=== PATIENT | male | born 1985 | race Caucasian/White ===

== ENCOUNTER 2020-12-01 06:09 | Emergency (ER) | payer SELFPAY ==
--- NOTE | ~2020-12-01 | CT_ITS ---
EXAMINATION: CT facial bones wo con DATE: 12/01/2020 06:45 INDICATION: Facial pain and swelling TECHNIQUE: Computed tomography (CT) of the facial bones and maxillofacial region was performed withou t intravenous contrast. The dose-length product (DLP) was 301.47 mGy-cm. Automated exposure control a nd iterative reconstruction technique were employed. COMPARISON: None. FINDINGS: No acute facial fracture is identified. There appears to be a small laceration in the midli ne of the upper lip. The globes and orbits are normal. The visualized cervical spine is unremarkable. Multiple dental caries are noted. IMPRESSION: 1. Midline soft tissue laceration of the upper lip without underlying osseous abnormality. Reviewed, dictated and finalized at location A. IMPRESSION: 1. Midline soft tissue laceration of the upper lip without underlying osseous a bnormality.
[2020-12-01 06:10] VITALS: BP 140/90; PULSE 97; RESP 20; O2SAT 98
--- NOTE | 2020-12-01 06:22 | ED.WOUNDLAC ---
HPI - Wound/Laceration General Chief Complaint: Wound/Laceration Stated Complaint: Fall Time Seen by Provider: 12/01/20 06:22 Source: patient Mode of arrival: ambulatory Limitations: no limitations History of Present Illness HPI narrative: 35-year-old man comes in today complaining of pain and laceration of his right upper lip after he fell this morning on his wet porch. Patient states that he did not lose consciousness and has had no vomiting. He has been drinking and is inebriated. Onset (ago): minute(s) (15) Place: home Patient tetanus UTD: No Context: accidental Associated symptoms: pain Related Data Home Medications Medication Instructions Recorded Confirmed No Home Medications 12/01/20 12/01/20 Allergies Allergy/AdvReac Type Severity Reaction Status Date / Time No Known Allergies Allergy Verified 12/01/20 06:21 Review of Systems Constitutional: Constitutional: Denies weakness Eyes: Eyes: Denies change in vision and Denies photophobia ENT: Denies dysphagia, Denies epistaxis and Denies nasal congestion Cardiovascular: Cardiovascular: Denies chest pain Respiratory: Respiratory: Denies cough and Denies dyspnea Gastrointestinal: Gastrointestinal: Denies nausea and Denies vomiting Hematologic/Lymphatic: Hematologic/Lymphatic: Denies easy bleeding and Denies easy bruising Allergic/Immunologic: Allergic/Immunologic: Denies lip swelling and Denies throat swelling [facility] Social History Social History (Updated 12/01/20 @ 06:34 by Andres Blas MD) Smoking status: Current every day smoker Alcohol intake: current Substance use type: marijuana Living arrangements: with family Exam Const: General: healthy appearing and alert Orientation/consciousness: patient oriented x3 Limitations: no limitations Other: Mild acute distress. HENMT: Head: normal to inspection Ears: external ears normal and EAC's normal Mouth: Yes moist mucous membranes Throat: posterior oropharynx normal Other: Mild bruising and tenderness with palpation of the right maxilla above the tooth line. No swelling or loose teeth. No evident epistaxis. 2.5 cm partial-thickness laceration from the nare to just above the vermilion border. No evident laceration on the buccal surface. Eyes: Conjunctivae: conjunctivae normal Pupils: Equal, round and reactive pupils present EOM: EOMs intact bilaterally Skin: General skin exam: normal color, no jaundice and no pallor Rashes: no rashes Neuro: General: patient oriented x3, moves all extremities, no focal motor deficits and CN's II-XI intact bilaterally Speech: normal speech Gait exam (Neuro): Normal gait present Extrem: General: normal to inspection and no clubbing, cyanosis or edema Psych: Appearance: grossly normal and well kempt Mental Status: mental status grossly normal Affect: normal affect Attitude: cooperative Thought content: Yes Normal thought content present Course Vital Signs Vital signs: Vital Signs Pulse Rate 97 12/01/20 06:10 Respiratory Rate 20 12/01/20 06:10 Blood Pressure 140/90 12/01/20 06:10 Pulse Oximetry 98 12/01/20 06:10 Pulse Rate 97 12/01/20 06:10 Respiratory Rate 20 12/01/20 06:10 Blood Pressure 140/90 12/01/20 06:10 Pulse Oximetry 98 12/01/20 06:10 Procedures Laceration Laceration 1: Date: 12/01/20 Time: 06:30 Site: lip Side (If applicable): right Size (cm): 2.5 Description: linear Depth: involves muscle layer Local Anesthetic: lidocaine 1% and with epi Amount of anesthesia used (mL): 2 Pre-repair: wound explored and irrigated ====== Skin Level ====== Skin layer closed with: nylon Size (cm): 5-0 Number of sutures: 6 Technique: simple, interrupted ====== Subcutaneous Layer ====== ====== Muscle Layer ====== Muscle layer closed with: chromic gut Size: 5-0 Number of sutures: 2
[2020-12-01] MEDS: TETANUS,DIPHTHERIA,AC PERTUSSIS ADULT 0.5 ML (ADACEL) IM (06:38)
[2020-12-01] MEDS: LIDO 1%/EPINEPHRINE 1:100,000 20 ML VIAL 10 ML INFILTRATE (06:48)
--- NOTE | 2020-12-01 07:01 | PC.NURSE ---
Pt report to MICHAEL Blair. dr caceres in process of doing sutures.
[2020-12-01 07:27] VITALS: BP 115/79; PULSE 89; RESP 16; TEMP 36.4; O2SAT 97
== END 2020-12-01 07:32 | disposition home or self-care (01) ==
PROVIDERS: Emergency Provider Emergency Medicine; PCP Family Medicine
DX: S01.511A Laceration without foreign body of lip, initial encounter (principal); W19.XXXA Unspecified fall, initial encounter
CPT/HCPCS: 12011; 70486; 90715; 99282

== ENCOUNTER 2024-06-12 01:54 | Emergency (ER) | payer SELFPAY ==
--- NOTE | 2024-06-12 01:56 | ED.DENTAL ---
HPI - Dental/Oral General Chief complaint: Dental/Oral Stated complaint: Abcess Time Seen by Provider: 06/12/24 01:55 Source: patient Mode of arrival: ambulatory Limitations: no limitations History of Present Illness HPI Narrative: Patient is a 38-year-old male with left lower jaw dental pain for the past 2 days. He has not had problem in this area for a while. He does not have a dentist. MD Complaint: tooth pain and tooth injury Location: Tooth # ( Nineteen and 20) Onset (ago): day(s) ( 2) Duration: constant Severity: moderate Severity scale (1-10): 7 Relieving factors: nothing Exacerbating factors: chewing, cold, heat and drinking fluids Context: history of dental caries and poor dental care Associated symptoms: gum swelling Treatment prior to arrival: oral analgesic Related Data Allergies Allergy/AdvReac Type Severity Reaction Status Date / Time No Known Allergies Allergy Verified 12/01/20 06:21 Review of Systems Review of Systems: All systems reviewed & are unremarkable except as noted in HPI and below Constitutional: Constitutional: Reports no additional constitutional complaints Eyes: Eyes: Reports no additional eye complaints ENT: Reports system reviewed and no additional complaints, except as documented Cardiovascular: Cardiovascular: Reports no additional cardiovascular complaints Respiratory: Respiratory: Reports no additional respiratory complaints Gastrointestinal: Gastrointestinal: Reports no additional gastrointestinal complaints Genitourinary: Genitourinary: Reports no additional male genitourinary complaints Musculoskeletal: Musculoskeletal: Reports no additional musculoskeletal complaints Integumentary/Breasts: Skin/Breast: Reports system reviewed and no additional complaints, except as docu Neurologic: Reports system reviewed and no additional complaints, except as documented Psychiatric: Psychiatric: Reports no additional psychiatric complaints Endocrine: Endocrine: Reports no additional endocrine complaints Hematologic/Lymphatic: Hematologic/Lymphatic: Reports no additional hematologic/lymphatic complaints Allergic/Immunologic: Allergic/Immunologic: Reports no additional allergic/immunologic complaints PMFSH Social History Social History Smoking status: Current every day smoker Alcohol intake: current Substance use type: marijuana Living arrangements: with family Exam Const: General: healthy appearing Nutritional Appearance: well nourished Orientation/consciousness: patient oriented x3 Limitations: no limitations HENMT: Head: normal to inspection Ears: external ears normal Face/Nose/Sinus: Normal external nose present Other: swollen left cheek on the lower region; much dental decay and dental fractures; specifically tooth 19 has half a tooth with bleeding and significant tenderness on examination; swollen gums without definite abscess for incision and drainage Eyes: Conjunctivae: conjunctivae normal Pupils: Equal, round and reactive pupils present EOM: EOMs intact bilaterally Neck: Neck: normal visual inspection Chest: Chest palpation & inspection: normal inspection of the chest Resp: Effort & Inspection: normal respiratory effort and not labored Auscultation: clear to auscultation bilaterally and no crackles Cardio: Rate: regular rate Rhythm: regular rhythm Heart sounds: no murmurs GI: Inspection: non-distended GI Palp: Yes Soft to palpation and No Tenderness to palpation present (GI) Auscultation: normal bowel sounds : General: Yes bladder normal to palpation Back/Spine/Pelvis: Back: no CVA tenderness Skin: General skin exam: normal color Rashes: no rashes Wounds: no wounds Neuro: General: patient oriented x3 Cranial nerves: Yes Nystagmus not present Speech: normal speech Extrem: General: normal to inspection Psych: Mental Status: mental status grossly normal Affect: normal affect Attitude: cooperative Course Vital Signs Vital signs: Vital Signs Temperature 36.8 C 06/12/24 02:00 Pulse Rate 87 06/12/24 02:00 Respiratory Rate 18 06/12/24 02:00 Blood Pressure 127/86 06/12/24 02:00 Pulse Oximetry 99 06/12/24 02:00 Oxygen Delivery Room Air 06/12/24 02:00 Temperature 36.8 C 06/12/24 02:00 Pulse Rate 87 06/12/24 02:00 Respiratory Rate 18 06/12/24 02:00 Blood Pressure 127/86 06/12/24 02:00 Pulse Oximetry 99 06/12/24 02:00 Oxygen Delivery Room Air 06/12/24 02:00 MDM - Dental/Oral MDM Narrative Medical decision making narrative: patient is a 38-year-old male with left lower jaw mandible pain due to dental caries and fractures. We will do Toradol IM and Augmentin p.o.. Discharge Plan Discharge Clinical Impression: Mandible pain Patient Disposition: Home Condition: Stable Instructions: Antibiotic Form, Toothache (ED) Additional Instructions: Please see a dentist as soon as possible for dental repair. Patient Language: Colombian Prescriptions: New tramadol 50 mg tablet 50 mg PO Q8H PRN (Reason: pain) Qty: 20 0RF Rx Instructions: 1-2 tabs per dose amoxicillin-pot clavulanate 875-125 mg tablet 1 tablet PO BID 10 Days Qty: 20 0RF Follow-up/Referrals: Rudi Julio MD [Primary Care Provider] - Time of Disposition: 02:27
--- OUTSIDE RECORDS SUMMARY | 2024-06-12 01:57 | XMS_ITS | Encounter Summary ---
Author Organization [facility] Address [address] [place] [address] Care Team Providers Care Shot Bagger Name Role Phone Tyrese Beal MD Primary Care Provider [phone] Encounter Details Date Type Department Care Team (Late st Contact Info) Description 07/16/2018 Abstract SFL CONVERSION [address] [place] [address] , Generic Conversion, Social History Tobacco Use Types Packs/Day Years Used Date Smoking Tobacco: Never Assessed Sex and Gender Information Value Date Recorded Sex Assigned at Not on file Legal Sex Male 8:12 PM CDT Gender Identity Not on file Sexual Orientation Not on file documented as of this encounter Plan of Treatment Not on file documented as of this encounter Visit Diagnoses Not on filedocumented in this encounter Care Teams Shot Bagger Relationship Specialty Start Date End Date Tyrese Beal MD [address] [place] [id number] PCP - General FAMILY PRACTICE 08/16/18 documented as of this encounter
--- OUTSIDE RECORDS SUMMARY | 2024-06-12 01:57 | XMS_ITS | Clinical Summary ---
Author Organization [facility] Address [address] [place] [address] Care Team Providers Care Licensed Insurance Sales Agent Name Role Phone Tyrese Beal MD Primary Care Provider [phone] Allergies No known active allergies Medications No known medications Active Problems No known active problems Social History Tobacco Use Types Packs/Day Years Used Date Smoking Tobacco: Every Day Cigarettes Smokeless Tobacco: Never Alcohol Use Standard Drinks/Week Comments Yes 5 (1 standard drink = 0.6 oz pur e alcohol) every other day Sex and Gender Information Value Date Recorded Sex Assigned at Not on file Legal Sex Male 8:12 PM CDT Gender Identity Not on file Sexual Orientation Not on file Last Filed Vital Signs Vital Sign Reading Time Taken Comments Blood Pressure 115/80 01/12/2021 6:30 PM INDUSTRIAL ELECTRICAL TECHNICIAN Pulse 78 01/12/2021 5:23 PM INDUSTRIAL ELECTRICAL TECHNICIAN Temperature 36.2 C (97.2 F) 01/12/2021 5:23 PM INDUSTRIAL ELECTRICAL TECHNICIAN Respiratory Rate 16 01/12/2021 5:23 PM INDUSTRIAL ELECTRICAL TECHNICIAN Oxygen Saturation 99% 01/12/2021 6:30 PM INDUSTRIAL ELECTRICAL TECHNICIAN Inhaled Oxygen Concentration - - Weight 69.9 kg (154 lb) 01/12/2021 5:23 PM INDUSTRIAL ELECTRICAL TECHNICIAN Height 170.2 cm (5' 7 ) 01/12/2021 5:23 PM INDUSTRIAL ELECTRICAL TECHNICIAN Body Mass Index 24.12 01/12/2021 5:23 PM INDUSTRIAL ELECTRICAL TECHNICIAN Plan of Treatment Health Maintenance Due Date Last Done Comments Annual Physical 1989 Hepatitis C 2004 DTaP, Tdap and Td Vaccines ( 1 - Tdap) 2005 Hepatitis B Vaccines (1 of 3 - 19+ 3-dose series) 2005 COVID-19 Vaccine (2023-2 5 season) 2023 HPV Vaccines Aged Out No longer eligi ble based on patient's age to complete this topic Meningococcal B Vaccine Aged Out No l onger eligible based on patient's age to complete this topic Meningococcal Vaccine Aged Out No darius dana eligible based on patient's age to complete this topic Pneumococcal Vaccine: Pediat rics (0 to 5 Years) and At-Risk Patients (6 to 49 Years) Aged Out No longer eligible b ased on patient's age to complete this topic RSV Immunizations Under 20 Months Aged Out No longer eligible based on patient's age to complete this topic Care Teams Licensed Insurance Sales Agent Relationship Specialty Start Date End Date Tyrese Beal MD [address] [place] [phone] PCP - General FAMILY PRACTICE 08/16/18
[2024-06-12 02:00] VITALS: BP 127/86; PULSE 87; RESP 18; TEMP 36.8; O2SAT 99
[2024-06-12] MEDS: AMOXICILLIN/CLAVULANATE K 875-125 MG TAB 1 TABLET PO (02:11)
[2024-06-12] MEDS: predniSONE 20 MG TABLET 40 MG PO (02:12)
[2024-06-12] MEDS: KETOROLAC (*BKC) 60 MG/2 ML VIAL IM (02:13)
[2024-06-12 02:42] VITALS: BP 130/78; PULSE 78; RESP 20; O2SAT 99
== END 2024-06-12 02:42 | disposition home or self-care (01) ==
LOC: CHSED 02:10
PROVIDERS: Emergency Provider Emergency Medicine; PCP Family Medicine
DX: K02.9 Dental caries, unspecified (principal); K03.81 Cracked tooth; F17.200 Nicotine dependence, unspecified, uncomplicated
CPT/HCPCS: 96372; 99283; A9270; J1885; J7512